=== PATIENT | female | born 2000 | race Two or more races ===

== ENCOUNTER → 2022-03-29 | Emergency (ER) | payer MEDICAID ==
[~2022-03-29] VITALS: Ht 154.9 cm; Wt 74.3 kg
[~2022-03-29] MED LIST: CEPH500C PO
[2022-03-29 19:15] VITALS: BP 120/74
[2022-03-29 19:59] LABS: BACTERIA,URINE FEW /HPF (0-FEW); RBC,URINE 0 /HPF (0-2)
[2022-03-29 21:16] LABS: BACTERIA,URINE MODERATE /HPF (0-FEW); RBC,URINE 0 /HPF (0-2)
--- NOTE | 2022-03-29 21:33 | PHYS DOC ---
Past Medical History Past Surgical History: No Surgical History General Adult EDM: Chief Complaint: ABDOMINAL PAIN IN HPI: HPI: Patient is a 22 year old female who is G1, P0 presents today with lower pelvic pain and a slight headache. She was told by her friend that this could be a sign of miscarriage. She is not having any vaginal bleeding. The pain is slight localized to her lower pelvis. This is her first . No dysuria urgency or frequency. No fever or flank pain or nausea or vomiting or diarrhea. Review of Systems: Review of Systems: Constitutional: Denies fever or chills. [] Eyes: Denies change in visual acuity. [] HENT: Denies nasal congestion or sore throat. [] Respiratory: Denies cough or shortness of breath. [] Cardiovascular: Denies chest pain or edema. [] GI: Positive for lower pelvic pain : Denies dysuria. [] Musculoskeletal: Denies back pain or joint pain. [] Integument: Denies rash. [] Neurologic: Denies headache, focal weakness or sensory changes. [] Endocrine: Denies polyuria or polydipsia. [] Lymphatic: Denies swollen glands. [] Psychiatric: Denies depression or anxiety. [] Heart Score: C/O Chest Pain: No Risk Factors: Risk Factors: DM, Current or recent (<one month) smoker, HTN, HLP, family history of CAD, obesity. Risk Scores: Score 0 - 3: 2.5% MACE over next 6 weeks - Discharge Home Score 4 - 6: 20.3% MACE over next 6 weeks - Admit for Clinical Observation Score 7 - 10: 72.7% MACE over next 6 weeks - Early Invasive Strategies Allergies: Allergies: Allergies Coded Allergies Type Severity Reaction Last Updated Verified No Known Drug Allergies 03/29/22 No Physical Exam: PE: Constitutional: Well developed, well nourished, no acute distress, non-toxic appearance. [] HENT: Normocephalic, atraumatic, bilateral external ears normal, oropharynx moist, no oral exudates, nose normal. [] Eyes: PERRLA, EOMI, conjunctiva normal, no discharge. [] Neck: Normal range of motion, no tenderness, supple, no stridor. [] Cardiovascular:Heart rate regular rhythm, no murmur [] Lungs & Thorax: Bilateral breath sounds clear to auscultation [] Abdomen: Bowel sounds normal, soft, no tenderness, no masses, no pulsatile masses. [] Skin: Warm, dry, no erythema, no rash. [] Back: No tenderness, no CVA tenderness. [] Extremities: No tenderness, no cyanosis, no clubbing, ROM intact, no edema. [] Neurologic: Alert and oriented X 3, normal motor function, normal sensory function, no focal deficits noted. [] Psychologic: Affect normal, judgement normal, mood normal. [] Current Patient Data: Labs: Laboratory Tests Test 03/29/22 19:25 03/29/22 20:49 Urine Collection Type Unknown Unknown Urine Color (Auto) Light yellow Light yellow Urine Turbidity Hazy Hazy Urine pH (Auto) 7.0 (<5.0-8.0) 7.5 (<5.0-8.0) Urine Specific [place] 1.009 (1.000-1.030) 1.012 (1.000-1.030) Urine Protein (Auto) Negative mg/dL (Negative) Negative mg/dL (Negative) Urine Glucose (Auto)(UA) Negative mg/dL (Negative) Negative mg/dL (Negative) Urine Ketones (Auto) Negative mg/dL (Negative) Negative mg/dL (Negative) Urine Blood (Auto) Negative (Negative) Negative (Negative) Urine Nitrite Negative (Negative) Negative (Negative) Urine Bilirubin (Auto) Negative (Negative) Negative (Negative) Urine Urobilinogen (Auto) Normal mg/dL (Normal) Normal mg/dL (Normal) Urine Leukocyte Esterase (Auto) Large (Negative) Moderate (Negative) Urine RBC 0 /HPF (0-2) 0 /HPF (0-2) Urine WBC 11-20 /HPF (0-4) 11-20 /HPF (0-4) Urine Squamous Epithelial Cells Many /LPF Many /LPF Urine Bacteria Few /HPF (0-FEW) Moderate /HPF (0-FEW) Urine Mucus Slight /LPF Vital Signs: Vital Signs Date Time Temp Pulse Resp B/P (MAP) Pulse Ox O2 Delivery O2 Flow Rate FiO2 03/29/22 19:15 98.1 94 18 120/74 (89) 97 Room Air 98.1 EKG: EKG: [] Radiology/Procedures: Radiology/Procedures: [] Course & Med Decision Making: Course & Med Decision Making Pertinent Labs and Imaging studies reviewed. (See chart for details) Patient already has had an ultrasound which shows a confirmed intrauterine by her CUSTOMER CONTACT REPRESENTATIVE. Urinalysis shows possible infection but patient is not having any significant UTI symptoms. Given her status status I will treat her with a short course of antibiotics. I suspect she is having normal round ligament pain of . Dragon Disclaimer: Dragon Disclaimer: This electronic medical record was generated, in whole or in part, using a voice recognition dictation system. Departure Departure Impression: Primary Impression: Pain of round ligament during Additional Impression: UTI (urinary tract infection) Disposition: 06 HOME HEALTH CARE SERVICE Condition: STABLE Referrals: UNKNOWN PCP NAME (PCP) Patient Instructions: Abdominal Pain During , Urinary Tract Infection CHALINO PENA MD March 29, 2022 21:33
== END | disposition home or self-care (01) ==
LOC: ER 18:39
DX: O23.41 Unspecified infection of urinary tract in pregnancy, first trimester (principal); Z3A.00 Weeks of gestation of pregnancy not specified
CPT/HCPCS: 81001; 87077; 87086; 99283